=== PATIENT | female | born 1970 | race Caucasian/White ===

== ENCOUNTER 2022-01-07 20:11 | Emergency (ER) | payer MEDICAID ==
[~2022-01-07] VITALS: Ht 167.6 cm; Wt 137.6 kg
--- OUTSIDE RECORDS SUMMARY | 2022-01-07 20:14 | XMS ---
PreManage Notification: CARROLL MCGILL Security Safety Spec Events No recent Security Events currently on file [facility] There are no care providers on record at this time. Nathalia has no Care Guidelines for this patient. Joni VISIT COUNT (12 MO.) 1 RAEANN Felix TOTAL 1 NOTE: Visits indicate total known visits. ED/C VISIT TRACKING (12 MO.) 01/07/2022 20:13 RAEANN Varghese [place] TYPE: Emergency COMPLAINT: - POST OP PROBLEMS INPATIENT VISIT TRACKING (12 MO.) No inpatient visits to display in this time frame [id number]
[2022-01-07] MEDS ORDERED: PRAZOSIN HCL5 MG PO (20:59)
[2022-01-07] MEDS ORDERED: EFFEXOR XR150 MG PO (21:00)
[2022-01-07] MEDS ORDERED: OMEPRAZOLE20 MG PO (21:00)
[2022-01-07] MEDS ORDERED: LIPITOR20 MG PO (21:02)
[2022-01-07] MEDS ORDERED: PROAIR HFA8.5 GM INH (21:02)
[2022-01-07] MEDS ORDERED: OXYCODONE HCL5 MG PO (21:03)
== END 2022-01-07 21:12 | disposition home or self-care (01) ==
LOC: ED 20:11
DX: T85.698A Other mechanical complication of other specified internal prosthetic devices, implants and grafts, initial encounter (principal); Z88.0 Allergy status to penicillin; Z88.8 Allergy status to other drugs, medicaments and biological substances; Z79.899 Other long term (current) drug therapy
CPT/HCPCS: 99283

== ENCOUNTER 2022-02-08 22:22 | Emergency (ER) | payer MEDICAID ==
[~2022-02-08] VITALS: Ht 172.7 cm; Wt 136.0 kg
[~2022-02-08 22:22] MED LIST: EFFEXOR XR150 MG PO; LIPITOR20 MG PO; OMEPRAZOLE20 MG PO; OXYCODONE HCL5 MG PO; PRAZOSIN HCL5 MG PO; PROAIR HFA8.5 GM INH
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
[2022-02-09] MEDS ORDERED: PERCOCET 5-3251 EACH PO (01:57)
== END 2022-02-09 02:38 | disposition home or self-care (01) ==
LOC: ED 22:22
DX: S92.811A Other fracture of right foot, initial encounter for closed fracture (principal); M19.90 Unspecified osteoarthritis, unspecified site; J44.9 Chronic obstructive pulmonary disease, unspecified; Z88.0 Allergy status to penicillin; Z88.8 Allergy status to other drugs, medicaments and biological substances; Z79.899 Other long term (current) drug therapy; W01.0XXA Fall on same level from slipping, tripping and stumbling without subsequent striking against object, initial encounter
CPT/HCPCS: 36415; 73700; 80048; 85025; 96374; 99284-25; J2270

== ENCOUNTER 2022-10-23 12:22 | Emergency (ER) | payer OTHER ==
[~2022-10-23] VITALS: Ht 172.7 cm; Wt 127.5 kg
[~2022-10-23 12:22] MED LIST changes: +PERCOCET 5-3251 EACH PO
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
== END 2022-10-23 13:56 | disposition home or self-care (01) ==
LOC: ED 12:22
DX: S83.411A Sprain of medial collateral ligament of right knee, initial encounter (principal); W00.0XXA Fall on same level due to ice and snow, initial encounter; M19.90 Unspecified osteoarthritis, unspecified site; F43.10 Post-traumatic stress disorder, unspecified; J44.9 Chronic obstructive pulmonary disease, unspecified; Z88.8 Allergy status to other drugs, medicaments and biological substances; Z88.0 Allergy status to penicillin; Z79.899 Other long term (current) drug therapy
CPT/HCPCS: 99283

== ENCOUNTER 2022-12-30 12:09 | Emergency (ER) | payer OTHER ==
[~2022-12-30] VITALS: Ht 172.7 cm; Wt 131.5 kg
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
[2022-12-30] MEDS ORDERED: PREDNISONE20 MG PO ×2 (13:27→15:35)
[2022-12-30] MEDS ORDERED: AZITHROMYCIN250 MG PO (13:27)
[2022-12-30] MEDS ORDERED: GABAPENTIN300 MG PO (13:28)
[2022-12-30] MEDS ORDERED: HYDROXYZINE HCL50 MG PO (13:28)
[2022-12-30 15:52] VITALS: BP 104/83
--- NOTE | 2022-12-31 16:43 | EKG ---
[facility] [address] [facility] [place], [place] [address] Signed Normal sinus rhythm Normal ECG No previous ECGs available Confirmed by PACHECO ESPARZA MD ([id number]) on 12/31/2022 4:42:59 PM Electronically Signed By: PACHECO ESPARZA MD 12/31/223 PATIENT NAME: CARROLL MCGILL Electrocardiogram DATE OF : 72 PHYSICIAN: PACHECO ESPARZA MD REPORT #: [id number] REPORT IS CONFIDENTIAL AND NOT TO BE RELEASED WITHOUT AUTHORIZATION
== END 2022-12-30 15:52 | disposition home or self-care (01) ==
LOC: ED 12:09
DX: R07.89 Other chest pain (principal); J44.9 Chronic obstructive pulmonary disease, unspecified; Z88.0 Allergy status to penicillin; Z88.8 Allergy status to other drugs, medicaments and biological substances; Z79.899 Other long term (current) drug therapy; Z79.52 Long term (current) use of systemic steroids
CPT/HCPCS: 36415; 71045; 80053; 84484; 85025; 93005; 93010; 94640

== ENCOUNTER 2024-11-04 19:17 | Emergency (ER) | payer OTHER ==
[~2024-11-04] VITALS: Ht 172.7 cm; Wt 140.6 kg
[~2024-11-04 19:17] MED LIST changes: +AZITHROMYCIN250 MG PO; +GABAPENTIN300 MG PO; +HYDROXYZINE HCL50 MG PO; +PREDNISONE20 MG PO
[2024-11-04 19:38] LABS: BASOPHILS 0.4 % (0-2); EOSINOPHILS 7.1 % (0-6); HEMATOCRIT 42.2 % (35.0-50.0); HEMOGLOBIN 14.6 g/dL (12.0-18.0); LYMPHOCYTES 40.9 % (24-44); MCH 30.8 (27-36); MCHC 34.7 g/dl (30-36); MCV 88.7 fl (81-99); MONOCYTES 5.5 % (0-12); NEUTROPHILS 46.1 % (39-80); PLATELET COUNT 291 K/uL (140-440); RBC 4.76 M/ul (4.3-5.7); RDW 13.2 (10.5-15.0)
[2024-11-04 19:59] LABS: ALBUMIN 3.6 g/dL (3.4-5.0); ALBUMIN/GLOBULIN RATIO 0.92 (1.1-2.4); ANION GAP 9.8 (7-21); BILIRUBIN, TOTAL 0.2 mg/dL (0.2-1.0); BUN/CREATININE RATIO 19.4 (6.0-28.6); CALCIUM 9.3 mg/dL (8.5-10.1); CREATININE, SERUM 0.67 mg/dL (0.55-1.02); POTASSIUM 3.8 mmol/L (3.5-5.1); PROTEIN, TOTAL 7.5 g/dL (6.4-8.2)
[2024-11-04] MEDS ORDERED: TENECTEPLASE 50 MG/10 ML VIAL IV ONE (20:00)
[2024-11-04 20:02] LABS: PARTIAL THROMBOPLASTIN TIME 26.7 Sec (22.9-41.3)
[2024-11-04 20:04] LABS: INR 0.91 (0.80-1.30); PROTIME 12.1 Sec (11.2-14.2)
[2024-11-04] MEDS ORDERED: TRAZODONE HCL100 MG PO (20:22)
[2024-11-04] MEDS ORDERED: REXULTI1 MG PO (20:22)
[2024-11-04] MEDS ORDERED: VITAMIN D325 MCG PO (20:23)
[2024-11-04] MEDS ORDERED: CYMBALTA60 MG PO (20:24)
[2024-11-04] MEDS ORDERED: NAPROXEN500 MG PO (20:25)
[2024-11-04] MEDS ORDERED: LIPITOR80 MG GT (20:26)
[2024-11-04] MEDS ORDERED: CITALOPRAM HBR40 MG PO (20:26)
[2024-11-04] MEDS ORDERED: DRAMAMINE25 M1 PO (20:27)
[2024-11-04] MEDS ORDERED: OMEPRAZOLE20 MG PO (20:27)
[2024-11-04] MEDS ORDERED: CYCLOBENZAPRINE10 MG PO (20:28)
[2024-11-04] MEDS ORDERED: MELATONIN12 MG PO (20:28)
[2024-11-04] MEDS ORDERED: DULERA 200 MCG/13 GM INH (20:29)
[2024-11-04] MEDS ORDERED: ADULT ASPIRIN R81 MG PO (20:30)
[2024-11-04] MEDS ORDERED: FLUTICASONE-SAL12 GM (20:31)
[2024-11-04 20:47] LABS: BILIRUBIN, URINE NEGATIVE (negative); BLOOD/HGB, URINE MODERATE (Negative); KETONE, URINE NEGATIVE (Negative); LEUK ESTERASE, URINE TRACE (negative); NITRITE, URINE POSITIVE (negative)
[2024-11-04 20:52] LABS: BACTERIA, URINE 1+ /hpf (negative); CASTS, URINE NONE SEEN \\lpf; COLLECTION TYPE, URINE CLEAN CATCH; CRYSTALS, URINE NONE SEEN (0-1+); EPITHELIAL CELLS, URINE SQUAMOUS 1+ /lpf (0-1+); REFLEX CULTURE, URINE Yes (No); WHITE BLOOD CELLS, URINE 21-40 /HPF (0-5)
[2024-11-04 21:01] LABS: AMPHETAMINES, URINE NEGATIVE (NEGATIVE); BARBITURATES, URINE NEGATIVE (NEGATIVE); BENZODIAZEPINE, URINE NEGATIVE (NEGATIVE); BUPRENORPHINE, URINE NEGATIVE (NEGATIVE); CANNABINOID, URINE NEGATIVE (NEGATIVE); COCAINE, URINE NEGATIVE (NEGATIVE); ECSTASY, URINE NEGATIVE (NEGATIVE); FENTANYL, URINE NEGATIVE (NEGATIVE); METHADONE, URINE NEGATIVE (NEGATIVE); OPIATES, URINE NEGATIVE (NEGATIVE); OXYCODONE, URINE NEGATIVE (NEGATIVE); PHENCYCLIDINE, URINE NEGATIVE (NEGATIVE)
[2024-11-04] MEDS ORDERED: CEFTRIAXONE SODIUM 2 GM VIAL ONE (22:26)
[2024-11-04] MEDS ORDERED: CEFTRIAXONE SODIUM 2 GM in SODIUM CHLORIDE 0.9% 100 ML IV ONE (22:45)
[2024-11-04 23:19] VITALS: BP 129/81
--- NOTE | 2024-11-06 21:08 | EKG ---
[facility] [address] [facility] [place], [place] [address] Signed Normal sinus rhythm Normal ECG When compared with ECG of 30-DEC-2022 12:18, No significant change was found Confirmed by Arthur Damon MD ([id number]) on 11/06/2024 9:07:55 PM Electronically Signed By: ARTHUR DAMON MD 11/06/24 210 PATIENT NAME: CARROLL MCGILL Electrocardiogram DATE OF : 72 PHYSICIAN: ARTHUR DAMON MD REPORT #: [id number] REPORT IS CONFIDENTIAL AND NOT TO BE RELEASED WITHOUT AUTHORIZATION
== END 2024-11-04 22:43 | disposition short-term general hospital (02) ==
LOC: ED 19:17
PROVIDERS: Family Medicine
DX: I63.9 Cerebral infarction, unspecified (principal); G81.91 Hemiplegia, unspecified affecting right dominant side; R47.1 Dysarthria and anarthria; J44.9 Chronic obstructive pulmonary disease, unspecified; Z88.8 Allergy status to other drugs, medicaments and biological substances; Z88.0 Allergy status to penicillin; Z79.51 Long term (current) use of inhaled steroids; Z79.82 Long term (current) use of aspirin; Z79.899 Other long term (current) drug therapy
CPT/HCPCS: 36415; 70450; 70496; 70498; 71045; 80053; 80307; 81001; 84484; 85025; 85610; 85730; 87077; 87088; 87186; 93005; 93010; G0480; J0696; J3101; Q3014; Q9967

== ENCOUNTER 2024-11-29 19:21 | Emergency (ER) | payer OTHER ==
[~2024-11-29] VITALS: Ht 172.7 cm; Wt 138.9 kg
[~2024-11-29 19:21] MED LIST changes: +ADULT ASPIRIN R81 MG PO; +CITALOPRAM HBR40 MG PO; +CYCLOBENZAPRINE10 MG PO; +CYMBALTA60 MG PO; +DRAMAMINE25 M1 PO; +DULERA 200 MCG/13 GM INH; +FLUTICASONE-SAL12 GM; +LIPITOR80 MG GT; +MELATONIN12 MG PO; +NAPROXEN500 MG PO; +REXULTI1 MG PO; +TRAZODONE HCL100 MG PO; +VITAMIN D325 MCG PO
--- OUTSIDE RECORDS SUMMARY | 2024-11-29 19:24 | XMS ---
PreManage Notification: CARROLL MCGILL Security Type Rolling Machine Operator Events No recent Security Events currently on file CRITERIA MET - [facility] - 2 Visits in 30 Days CARE PROVIDERS [facility] 09/03[facility]2019-Current [facility] PHONE: [phone] MATT RENTERIA Nurse Practitioner 05/23/2018-Current PHONE: Unknown KAY PORTILLO Family [facility] Current PHONE: Unknown Muriel Rubalcava Physician Final Application Reviewer El CALDERÓN PHONE: [phone] ISAI ANAND Stippler/Artist Relationship Manager [facility] TEAM PHONE: Unknown [facility] Clinic[facility]Center: [facility] Vaxart [facility] Current WORKERS CLINIC [facility] ([facility] <UNAVAIL> PHONE: [phone] Nathalia has no Care Guidelines for this patient. Joni VISIT COUNT (12 MO.) 2 RAEANN Felix 2 [facility] TOTAL 4 NOTE: Visits indicate total known visits. ED/UCC VISIT TRACKING (12 MO.) 11/29/2024 19:22 RAEANN Varghese [place] TYPE: Emergency COMPLAINT: - BACK PAIN 11/04/2024 19:17 RAEANN Varghese [place] TYPE: Emergency COMPLAINT: - STROKE SYMPTOMS DIAGNOSES: - Allergy status to other drugs, medicaments and biological substances - Allergy status to penicillin - Cerebral infarction, unspecified - Chronic obstructive pulmonary disease, unspecified - Dysarthria and anarthria - Hemiplegia, unspecified affecting right dominant side - oil heaterman (current) use of aspirin - jail (current) use of inhaled steroids - Other technician terminal and repeater (current) drug therapy - Weakness 05/12/2024 17:34 [facility] [place] TYPE: Emergency DIAGNOSES: - Headache, unspecified - Other symptoms and signs involving the musculoskeletal system - STROKE 01/09/2024 11:56 [facility] [place] TYPE: Emergency DIAGNOSES: - Contusion of right foot, initial encounter - Contusion of scalp, initial encounter - DIZZY, LIGHTHEADED, COUGH INPATIENT VISIT TRACKING (12 MO.) 11/05/2024 00:43 [facility] TYPE: Critical Care DIAGNOSES: - Anxiety disorder, unspecified - Cerebral infarction, unspecified - Depression, unspecified - Dysarthria and anarthria - Hyperlipidemia, unspecified - Nicotine dependence, cigarettes, uncomplicated - Weakness 05/13/2024 04:25 [facility]DON[facility]O TYPE: Neurology COMPLAINT: - ischemic stroke DIAGNOSES: - Cerebral infarction, unspecified [id number]
[2024-11-29] MEDS ORDERED: KETOROLAC TROMETHAMINE 60 MG/2 ML VIAL IM ONE (20:00)
[2024-11-29] MEDS ORDERED: LO-DOSE ASPIRIN81 MG (21:30)
[2024-11-29] MEDS ORDERED: IPRAT-ALBUT 0.5-3 ML (21:31)
[2024-11-29] MEDS ORDERED: HYDROmorphone HCL 1 MG/ML SYR IV ONE (21:45)
[2024-11-29] MEDS ORDERED: OXYCODONE/APAP 10/325 TAB PO ONE (22:00)
[2024-11-29] MEDS ORDERED: OXYCODONE/ACETAMINOPHEN 1 TAB HOME.PACK PO ONE (22:45)
[2024-11-29] MEDS ORDERED: predniSONE 20 MG TAB PO ONE (22:45)
[2024-11-29] MEDS ORDERED: OXYCODONE HCL5 MG PO (22:48)
[2024-11-29] MEDS ORDERED: PREDNISONE20 MG PO (22:48)
[2024-11-29 23:20] VITALS: BP 119/61
== END 2024-11-29 23:25 | disposition home or self-care (01) ==
LOC: ED 19:21
DX: S39.012A Strain of muscle, fascia and tendon of lower back, initial encounter (principal); F43.10 Post-traumatic stress disorder, unspecified; J44.9 Chronic obstructive pulmonary disease, unspecified; Z88.0 Allergy status to penicillin; Z79.899 Other long term (current) drug therapy; Z79.1 Long term (current) use of non-steroidal anti-inflammatories (NSAID); Z79.82 Long term (current) use of aspirin; X58.XXXA Exposure to other specified factors, initial encounter
CPT/HCPCS: 72131; 96372; 99283-25; J1885; J7512

== ENCOUNTER 2024-12-08 16:15 | Emergency (ER) | payer OTHER ==
[~2024-12-08] VITALS: Ht 172.7 cm; Wt 140.0 kg
[~2024-12-08 16:15] MED LIST changes: +IPRAT-ALBUT 0.5-3 ML; +LO-DOSE ASPIRIN81 MG
--- OUTSIDE RECORDS SUMMARY | 2024-12-08 16:16 | XMS ---
PreManage Notification: CARROLL MCGILL Security Pot Annealer Events No recent Security Events currently on file CRITERIA MET - [facility] - 2 Visits in 30 Days [facility] PHONE: [phone] MATT RENTERIA Nurse Practitioner 05/23/2018-Current PHONE: Unknown KAY PORTILLO Family [facility] Current PHONE: Unknown Muriel Rubalcava Physician Library Director El CALDERÓN PHONE: [phone] ISAI ANAND Die Cutter Diamond/Plater Barrel [facility] TEAM PHONE: Unknown [facility] Clinic/Center: [facility] [employer] [facility] Current WORKERS CLINIC [facility] ([facility]) <UNAVAIL> PHONE: [phone] Natahlia has no Care Guidelines for this patient. Joni VISIT COUNT (12 MO.) 3 RAEANN Felix 2 [facility] TOTAL 5 NOTE: Visits indicate total known visits. ED/UCC VISIT TRACKING (12 MO.) 12/08/2024 16:16 RAEANN Varghese [place] TYPE: Emergency COMPLAINT: - BLOOD IN STOOL 11/29/2024 19:22 RAEANN Varghese [place] TYPE: Emergency COMPLAINT: - BACK PAIN DIAGNOSES: - Allergy status to penicillin - Chronic obstructive pulmonary disease, unspecified - Exposure to other specified factors, initial encounter - FDC (current) use of aspirin - FDC (current) use of non-steroidal anti-inflammatories (NSAID) - Low back pain, unspecified - Other rock worker (current) drug therapy - Post-traumatic stress disorder, unspecified - Strain of muscle, fascia and tendon of lower back, initial encounter 11/04/2024 19:17 RAEANN [place] TYPE: Emergency COMPLAINT: - STROKE SYMPTOMS DIAGNOSES: - Allergy status to other drugs, medicaments and biological substances - Allergy status to penicillin - Cerebral infarction, unspecified - Chronic obstructive pulmonary disease, unspecified - Dysarthria and anarthria - Hemiplegia, unspecified affecting right dominant side - gin feeder (current) use of aspirin - gin feeder (current) use of inhaled steroids - Other usp (current) drug therapy - Weakness 05/12/2024 17:34 [facility] [place] TYPE: Emergency DIAGNOSES: - Headache, unspecified - Other symptoms and signs involving the musculoskeletal system - STROKE 01/09/2024 11:56 [facility] [place] TYPE: Emergency DIAGNOSES: - Contusion of right foot, initial encounter - Contusion of scalp, initial encounter - DIZZY, LIGHTHEADED, COUGH INPATIENT VISIT TRACKING (12 MO.) 11/05/2024 00:43 [facility] TYPE: Critical Care DIAGNOSES: - Anxiety disorder, unspecified - Cerebral infarction, unspecified - Depression, unspecified - Dysarthria and anarthria - Hyperlipidemia, unspecified - Nicotine dependence, cigarettes, uncomplicated - Weakness 05/13/2024 04:25 [facility] Alberto [facility] TYPE: Neurology COMPLAINT: - ischemic stroke DIAGNOSES: - Cerebral infarction, unspecified [id number]
[2024-12-08] MEDS ORDERED: SODIUM CHLORIDE 0.9% 500 ML IV PRN (16:45)
[2024-12-08 16:51] LABS: BASOPHILS 0.5 % (0-2); HEMOGLOBIN 14.5 g/dL (12.0-18.0); LYMPHOCYTES 34.6 % (24-44); MCH 30.5 (27-36); MCHC 35.3 g/dl (30-36); MCV 86.5 fl (81-99); NEUTROPHILS 51.9 % (39-80); PLATELET COUNT 289 K/uL (140-440); RBC 4.75 M/ul (4.3-5.7); RDW 13.3 (10.5-15.0)
[2024-12-08] MEDS ORDERED: LISINOPRIL5 MG PO (16:51)
[2024-12-08 17:03] LABS: PARTIAL THROMBOPLASTIN TIME 21.6 Sec (22.9-41.3)
[2024-12-08 17:04] LABS: INR 0.94 (0.80-1.30)
[2024-12-08 17:11] LABS: ALBUMIN 3.4 g/dL (3.4-5.0); ALBUMIN/GLOBULIN RATIO 0.87 (1.1-2.4); ANION GAP 10.7 (7-21); BILIRUBIN, TOTAL 0.3 mg/dL (0.2-1.0); CALCIUM 9.2 mg/dL (8.5-10.1); CREATININE, SERUM 0.65 mg/dL (0.55-1.02); POTASSIUM 3.7 mmol/L (3.5-5.1); PROTEIN, TOTAL 7.3 g/dL (6.4-8.2)
[2024-12-08 17:25] LABS: ABO A; ANTIBODY SCREEN NEGATIVE; RH POSITIVE
[2024-12-08 19:05] VITALS: BP 133/86
== END 2024-12-08 19:05 | disposition home or self-care (01) ==
LOC: ED 16:15
PROVIDERS: Emergency Medicine
DX: K92.2 Gastrointestinal hemorrhage, unspecified (principal); J44.9 Chronic obstructive pulmonary disease, unspecified; F43.10 Post-traumatic stress disorder, unspecified; Z88.0 Allergy status to penicillin; Z88.8 Allergy status to other drugs, medicaments and biological substances; Z79.51 Long term (current) use of inhaled steroids; Z79.82 Long term (current) use of aspirin
CPT/HCPCS: 36415; 80053; 85025; 85610; 85730; 86850; 86900; 86901; 99284

== ENCOUNTER 2024-12-25 21:00 | Emergency (ER) | payer OTHER ==
[~2024-12-25] VITALS: Ht 172.7 cm; Wt 136.4 kg
[~2024-12-25 21:00] MED LIST changes: +LISINOPRIL5 MG PO
--- OUTSIDE RECORDS SUMMARY | 2024-12-25 21:01 | XMS ---
PreManage Notification: CARROLL MCGILL Security Door Builder Events No recent Security Events currently on file CRITERIA MET - [facility] - 2 Visits in 30 Days [facility] PHONE: [phone] MATT RENTERIA Nurse Practitioner 05/23/2018-Current PHONE: Unknown KAY PORTILLO Family [facility] Current PHONE: Unknown Muriel Rubalcava Physician Cut Off Sawyer Log El CALDERÓN PHONE: [phone] ISAI ANAND Jewelry Enameler/Belt [facility] TEAM PHONE: Unknown [facility] Clinic[facility]Center: [facility] Current WORKERS CLINIC [facility] ([facility]) <UNAVAIL> PHONE: [phone] Nathalia has no Care Guidelines for this patient. Joni VISIT COUNT (12 MO.) 4 RAEANN Felix 2 [facility] TOTAL 6 NOTE: Visits indicate total known visits. ED/UCC VISIT TRACKING (12 MO.) 12/25/2024 21:01 RAEANN [place]arg[place]se [place] TYPE: Emergency COMPLAINT: - ALTERED LOC 12/08/2024 16:16 RAEANN Varg[place]se [place] TYPE: Emergency COMPLAINT: - BLOOD IN STOOL DIAGNOSES: - Allergy status to other drugs, medicaments and biological substances - Allergy status to penicillin - Chronic obstructive pulmonary disease, unspecified - Gastrointestinal hemorrhage, unspecified - Hemorrhage of anus and rectum - regional intermodal truck driver (current) use of aspirin - long-term (current) use of inhaled steroids - Post-traumatic stress disorder, unspecified 11/29/2024 19:22 RAEANN [place]arg[place]se [place] TYPE: Emergency COMPLAINT: - BACK PAIN DIAGNOSES: - Allergy status to penicillin - Chronic obstructive pulmonary disease, unspecified - Exposure to other specified factors, initial encounter - regional intermodal truck driver (current) use of aspirin - long-term (current) use of non-steroidal anti-inflammatories (NSAID) - Low back pain, unspecified - Other extermination inspector (current) drug therapy - Post-traumatic stress disorder, unspecified - Strain of muscle, fascia and tendon of lower back, initial encounter 11/04/2024 19:17 RAEANN [place]arg[place]se [place] TYPE: Emergency COMPLAINT: - STROKE SYMPTOMS DIAGNOSES: - Allergy status to other drugs, medicaments and biological substances - Allergy status to penicillin - Cerebral infarction, unspecified - Chronic obstructive pulmonary disease, unspecified - Dysarthria and anarthria - Hemiplegia, unspecified affecting right dominant side - long-term (current) use of aspirin - long-term (current) use of inhaled steroids - Other group home (current) drug therapy - Weakness 05/12/2024 17:34 [facility] [place] TYPE: Emergency DIAGNOSES: - Headache, unspecified - Other symptoms and signs involving the musculoskeletal system - STROKE 01/09/2024 11:56 [facility] TYPE: Emergency DIAGNOSES: - Contusion of right foot, initial encounter - Contusion of scalp, initial encounter - DIZZY, LIGHTHEADED, COUGH INPATIENT VISIT TRACKING (12 MO.) 11/05/2024 00:43 [facility] TYPE: Critical Care DIAGNOSES: - Anxiety disorder, unspecified - Cerebral infarction, unspecified - Depression, unspecified - Dysarthria and anarthria - Hyperlipidemia, unspecified - Nicotine dependence, cigarettes, uncomplicated - Weakness 05/13/2024 04:25 [facility] Alberto [facility] TYPE: Neurology COMPLAINT: - ischemic stroke DIAGNOSES: - Cerebral infarction, unspecified [id number]
[2024-12-25] MEDS ORDERED: IBLOOD GLUCOSE TEST STRIP 1 EA TEST XX ONE (21:15)
[2024-12-25 21:32] LABS: HEMATOCRIT 37.9 % (35.0-50.0); HEMOGLOBIN 13.4 g/dL (12.0-18.0); MCH 30.1 (27-36); MCHC 35.4 g/dl (30-36); PLATELET COUNT 275 K/uL (140-440); RBC 4.45 M/ul (4.3-5.7); RDW 13.1 (10.5-15.0)
[2024-12-25 21:43] LABS: INR 1.05 (0.80-1.30); PARTIAL THROMBOPLASTIN TIME 26.7 Sec (22.9-41.3); PROTIME 13.1 Sec (11.2-14.2)
[2024-12-25 21:44] LABS: BASOPHILS, MANUAL DIFF 1; EOSINOPHILS, MANUAL DIFF 5; LYMPHOCYTES, MANUAL DIFF 50; MONOCYTES, MANUAL DIFF 4; NEUTROPHILS, MANUAL DIFF 40
[2024-12-25 21:54] LABS: ALBUMIN 3.1 g/dL (3.4-5.0); ALBUMIN/GLOBULIN RATIO 0.84 (1.1-2.4); ANION GAP 10.4 (7-21); BILIRUBIN, TOTAL 0.3 mg/dL (0.2-1.0); BUN/CREATININE RATIO 18.91 (6.0-28.6); CALCIUM 8.6 mg/dL (8.5-10.1); CREATININE, SERUM 0.74 mg/dL (0.55-1.02); POTASSIUM 3.4 mmol/L (3.5-5.1); PROTEIN, TOTAL 6.8 g/dL (6.4-8.2)
[2024-12-25 23:23] VITALS: BP 114/62
== END 2024-12-25 23:10 | disposition home or self-care (01) ==
LOC: ED 21:00
PROVIDERS: Family Medicine
DX: R53.1 Weakness (principal); F43.10 Post-traumatic stress disorder, unspecified; J44.9 Chronic obstructive pulmonary disease, unspecified; Z79.52 Long term (current) use of systemic steroids; Z79.82 Long term (current) use of aspirin; Z79.899 Other long term (current) drug therapy; Z88.0 Allergy status to penicillin; Z88.8 Allergy status to other drugs, medicaments and biological substances
CPT/HCPCS: 36415; 70450; 70496; 70498; 80053; 80307; 84484; 85025; 85610; 85730; 99285-25; Q9967

== ENCOUNTER 2025-02-17 17:28 | Emergency (ER) | payer OTHER ==
[~2025-02-17] VITALS: Ht 172.7 cm; Wt 143.0 kg
--- NOTE | ~2025-02-17 | EKG ---
[facility] [address] [place], [place] [address] Draft EK completed, results pending confirmation PATIENT NAME: CARROLL MCGILL Electrocardiogram DATE OF : 72 PHYSICIAN: PRELIMINARY REPORT #: [id number] REPORT IS CONFIDENTIAL AND NOT TO BE RELEASED WITHOUT AUTHORIZATION
[~2025-02-17 17:28] MED LIST changes: +LEVETIRACETAM250 MG PO
--- OUTSIDE RECORDS SUMMARY | 2025-02-17 17:29 | XMS ---
PreManage Notification: CARROLL MCGILL Security [employer] Events No recent Security Events currently on file CRITERIA MET - 6 ED Visits in 6 Months - [facility] - 2 Visits in 30 Days [facility] FAMILY PHONE: [phone] MATT RENTERIA Nurse Practitioner 05/23/2018-Current PHONE: Unknown KAY PORTILLO [facility] Current PHONE: Unknown Muriel Rubalcava Physician Maritime Engineer El CALDERÓN PHONE: [phone] ISAI ANAND Director Of Career Resources/Furrier Apprentice [facility] TEAM PHONE: Unknown [employer] [facility] Clinic/Center: [employer] Current [facility] PHONE: [phone] Nathalia has no Care Guidelines for this patient. Joni VISIT COUNT (12 MO.) 6 RAEANN [facility] TOTAL 7 NOTE: Visits indicate total known visits. ED/UCC VISIT TRACKING (12 MO.) 02/17/2025 17:29 [facility] [place] TYPE: Emergency COMPLAINT: - SEIZURE 01/25/2025 18:17 [facility] [place] TYPE: Emergency COMPLAINT: - SEIZURE DIAGNOSES: - Allergy status to other drugs, medicaments and biological substances - Allergy status to penicillin - Chronic obstructive pulmonary disease, unspecified - oil heaterman (current) use of inhaled steroids - Other watermelon inspector (current) drug therapy - Post-traumatic stress disorder, unspecified - Unspecified convulsions 12/25/2024 21:01 [facility] [place] TYPE: Emergency COMPLAINT: - ALTERED LOC DIAGNOSES: - Allergy status to other drugs, medicaments and biological substances - Allergy status to penicillin - Chronic obstructive pulmonary disease, unspecified - half-way (current) use of aspirin - half-way (current) use of systemic steroids - Other watermelon inspector (current) drug therapy - Post-traumatic stress disorder, unspecified - Weakness 12/08/2024 16:16 [facility] [place] TYPE: Emergency COMPLAINT: - BLOOD IN STOOL DIAGNOSES: - Allergy status to other drugs, medicaments and biological substances - Allergy status to penicillin - Chronic obstructive pulmonary disease, unspecified - Gastrointestinal hemorrhage, unspecified - Hemorrhage of anus and rectum - half-way (current) use of aspirin - half-way (current) use of inhaled steroids - Post-traumatic stress disorder, unspecified 11/29/2024 19:22 [facility] [place] TYPE: Emergency COMPLAINT: - BACK PAIN DIAGNOSES: - Allergy status to penicillin - Chronic obstructive pulmonary disease, unspecified - Exposure to other specified factors, initial encounter - oil heaterman (current) use of aspirin - oil heaterman (current) use of non-steroidal anti-inflammatories (NSAID) - Low back pain, unspecified - Other halfway (current) drug therapy - Post-traumatic stress disorder, [...] oil heaterman (current) use of aspirin - half-way (current) use of inhaled steroids - Other watermelon inspector (current) drug therapy - Weakness 05/12/2024 17:34 [facility] [place] TYPE: Emergency DIAGNOSES: - Headache, unspecified - Other symptoms and signs involving the musculoskeletal system - STROKE INPATIENT VISIT TRACKING (12 MO.) 11/05/2024 00:43 [facility]I [facility] TYPE: Critical Care DIAGNOSES: - Anxiety disorder, unspecified - Cerebral infarction, unspecified - Depression, unspecified - Dysarthria and anarthria - Hyperlipidemia, unspecified - Nicotine dependence, cigarettes, uncomplicated - Weakness 05/13/2024 04:25 [facility] TYPE: Neurology COMPLAINT: - ischemic stroke DIAGNOSES: - Cerebral infarction, unspecified [email or web address]
[2025-02-17] MEDS ORDERED: REXULTI2 MG PO (17:40)
[2025-02-17] MEDS ORDERED: ATORVASTATIN CA80 MG PO (17:40)
[2025-02-17] MEDS ORDERED: ZOLPIDEM TARTRAT5 MG PO (17:40)
[2025-02-17] MEDS ORDERED: IBLOOD GLUCOSE TEST STRIP 1 EA TEST VI ONE (17:45)
[2025-02-17 18:02] LABS: BASOPHILS 0.4 % (0.1-1.2); EOSINOPHILS 4.5 % (0.7-5.8); HEMATOCRIT 39.7 % (34.1-44.9); HEMOGLOBIN 13.6 g/dL (11.2-15.7); LYMPHOCYTES 34.5 % (19.3-51.7); MCHC 34.3 g/dL (32.2-35.5); MCV 87.4 fL (79.4-94.8); MONOCYTES 6.4 % (4.7-12.5); NEUTROPHILS 53.9 % (34.0-71.1); PLATELET COUNT 263 K/uL (182-369); RBC 4.54 M/uL (3.93-5.22)
[2025-02-17 18:28] LABS: ALBUMIN 3.3 g/dL (3.4-5.0); ALBUMIN/GLOBULIN RATIO 0.87 (1.1-2.4); ALCOHOL, MEDICAL <3 ng/dL (<3); ALKALINE PHOSPHATASE 169 U/L (46-116); ALT (SGPT) 46 U/L (14-59); AST (SGOT) 20 U/L (15-37); BILIRUBIN, TOTAL 0.4 mg/dL (0.2-1.0); BUN/CREATININE RATIO 13.18 (6.0-28.6); CARBON DIOXIDE 30 mmol/L (21-32); CHLORIDE 104 mmol/L (98-107); CREATININE, SERUM 0.91 mg/dL (0.55-1.02); GLOMERULAR FILTRATION RATE,EST 75 mL/min (>60); PROTEIN, TOTAL 7.1 g/dL (6.4-8.2); UREA NITROGEN 12 mg/dL (7-18)
[2025-02-17] MEDS ORDERED: levETIRAcetam 500 MG TAB PO ONE (18:45)
[2025-02-17 18:59] LABS: BILIRUBIN, URINE NEGATIVE (negative); BLOOD/HGB, URINE TRACE-I (Negative); KETONE, URINE NEGATIVE (Negative); LEUK ESTERASE, URINE NEGATIVE (negative); NITRITE, URINE NEGATIVE (negative)
[2025-02-17 19:03] VITALS: BP 126/70
[2025-02-17 19:07] LABS: EPITHELIAL CELLS, URINE SQUAMOUS 4+ /lpf (0-1+); WHITE BLOOD CELLS, URINE 0-1 /HPF (0-5)
[2025-02-17 19:08] LABS: BACTERIA, URINE 1+ /hpf (negative); CASTS, URINE NONE SEEN \\lpf; COLLECTION TYPE, URINE CLEAN CATCH; CRYSTALS, URINE NONE SEEN (0-1+); REFLEX CULTURE, URINE No (No)
[2025-02-17 19:22] LABS: AMPHETAMINES, URINE NEGATIVE (NEGATIVE); BARBITURATES, URINE NEGATIVE (NEGATIVE); BENZODIAZEPINE, URINE NEGATIVE (NEGATIVE); BUPRENORPHINE, URINE NEGATIVE (NEGATIVE); CANNABINOID, URINE NEGATIVE (NEGATIVE); COCAINE, URINE NEGATIVE (NEGATIVE); ECSTASY, URINE NEGATIVE (NEGATIVE); FENTANYL, URINE NEGATIVE (NEGATIVE); METHADONE, URINE NEGATIVE (NEGATIVE); OPIATES, URINE NEGATIVE (NEGATIVE); OXYCODONE, URINE NEGATIVE (NEGATIVE); PHENCYCLIDINE, URINE NEGATIVE (NEGATIVE)
== END 2025-02-17 19:30 | disposition home or self-care (01) ==
LOC: ED 17:28
PROVIDERS: Emergency Medicine
DX: G40.909 Epilepsy, unspecified, not intractable, without status epilepticus (principal); J44.9 Chronic obstructive pulmonary disease, unspecified; M19.90 Unspecified osteoarthritis, unspecified site; F43.10 Post-traumatic stress disorder, unspecified; Z88.0 Allergy status to penicillin; Z88.8 Allergy status to other drugs, medicaments and biological substances; Z79.82 Long term (current) use of aspirin; Z79.899 Other long term (current) drug therapy; Z79.890 Hormone replacement therapy
CPT/HCPCS: 36415; 71045; 80053; 80177; 80307; 81001; 84484; 85025; 93005; 93010; 99284-25; G0480

== ENCOUNTER 2025-06-16 00:23 | Emergency (ER) | payer OTHER ==
[~2025-06-16] VITALS: Ht 172.7 cm; Wt 150.0 kg
[~2025-06-16 00:23] MED LIST changes: +ATORVASTATIN CA80 MG PO; +REXULTI2 MG PO; +ZOLPIDEM TARTRAT5 MG PO
--- OUTSIDE RECORDS SUMMARY | 2025-06-16 00:24 | XMS ---
PreManage Notification: CARROLL MCGILL Security Early Education Teacher Events No recent Security Events currently on file CRITERIA MET - 6 ED Visits in 6 Months [facility]Current [facility] PHONE: [phone] MATT RENTERIA Nurse Practitioner 05/23/2018-Current PHONE: Unknown -[facility]ist: Supervising Film Or Videotape Editor El Dupree PHONE: [phone] SANDRA SAUK [facility] CARE SYSTEM \F\ <UNAVAIL> PHONE: [phone] Leia BAINS Switchboard Clerk/Outsole Skiver Current PHONE: [phone] KAY PORTILLO [facility] Current PHONE: Unknown Muriel Rubalcava Physician Automobile Accessories Salesperson El CALDERÓN PHONE: [phone] ISAI ANAND Switchboard Clerk/Outsole Skiver [facility] TEAM PHONE: Unknown Nathalia has no Care Guidelines for this patient. E.D. VISIT COUNT (12 MO.) 7 RAEANN Dee [employer] TOTAL 10 NOTE: Visits indicate total known visits. ED/UCC VISIT TRACKING (12 MO.) 06/16/2025 00:24 [facility] [place] TYPE: Emergency COMPLAINT: - SHORTNESS OF BREATH 05/11/2025 12:28 [facility] [place] TYPE: Emergency DIAGNOSES: - Other symptoms and signs involving the nervous system - stroke symptoms 04/18/2025 06:32 [facility] [place] TYPE: Emergency DIAGNOSES: - Chronic obstructive pulmonary disease with (acute) exacerbation - SHORTNESS OF BREATH 04/02/2025 11:37 [facility] [place] TYPE: Emergency DIAGNOSES: - Unspecified convulsions - SEIZURES LETHARGIC 02/17/2025 17:29 [facility] [place] TYPE: Emergency COMPLAINT: - SEIZURE DIAGNOSES: - Allergy status to other drugs, medicaments and biological substances - Allergy status to penicillin - Chronic obstructive pulmonary disease, unspecified - Epilepsy, unspecified, not intractable, without status epilepticus - Hormone replacement therapy - longterm (current) use of aspirin - Other snf (current) drug therapy - Post-traumatic stress disorder, unspecified - Unspecified convulsions - Unspecified osteoarthritis, unspecified site 01/25/2025 18:17 [facility] [place] TYPE: Emergency COMPLAINT: - SEIZURE DIAGNOSES: - Allergy status to other drugs, medicaments and biological substances - Allergy status to penicillin - Chronic obstructive pulmonary disease, unspecified - buttermaker (current) use of inhaled steroids - Other terminal system operator (current) drug therapy - Post-traumatic stress disorder, unspecified - Unspecified convulsions 12/25/2024 21:01 [facility] [place] TYPE: Emergency COMPLAINT: - ALTERED LOC DIAGNOSES: - Allergy status to other drugs, medicaments and biological substances - Allergy status to penicillin - Chronic obstructive pulmonary disease, unspecified - longterm (current) use of aspirin - longterm (current) use of systemic steroids - Other terminal system operator (current) drug therapy - Post-traumatic stress disorder, unspecified - Weakness 12/08/2024 16:16 [facility] [place] TYPE: Emergency COMPLAINT: - BLOOD IN STOOL DIAGNOSES: - Allergy status to other drugs, medicaments and biological substances - Allergy status to penicillin - Chronic obstructive pulmonary disease, unspecified - Gastrointestinal hemorrhage, unspecified - Hemorrhage of anus and rectum - longterm (current) use of aspirin - buttermaker (current) use of inhaled steroids - Post-traumatic stress disorder, unspecified 11/29/2024 19:22 [facility] [place] TYPE: Emergency COMPLAINT: - BACK PAIN DIAGNOSES: - Allergy status to penicillin - Chronic obstructive pulmonary disease, unspecified - Exposure to other specified factors, initial encounter - longterm (current) use of aspirin - buttermaker (current) use of non-steroidal anti-inflammatories (NSAID) - Low back pain, unspecified - Other terminal system operator (current) drug therapy - Post-traumatic stress disorder, [...] Hemiplegia, unspecified affecting right dominant side - buttermaker (current) use of aspirin - buttermaker (current) use of inhaled steroids - Other terminal system operator (current) drug therapy - Weakness INPATIENT VISIT TRACKING (12 MO.) 11/05/2024 00:43 [facility] TYPE: Critical Care DIAGNOSES: - Anxiety disorder, unspecified - Cerebral infarction, unspecified - Depression, unspecified - Dysarthria and anarthria - Hyperlipidemia, unspecified - Nicotine dependence, cigarettes, uncomplicated - Weakness [email or web address]
[2025-06-16] MEDS ORDERED: ALBUTEROL SULFATE 0.5% 2.5 MG/0.5 ML VIAL INH ONE (00:30)
[2025-06-16 00:41] LABS: BASOPHILS 0.3 % (0.1-1.2); EOSINOPHILS 3.4 % (0.7-5.8); LYMPHOCYTES 46.1 % (19.3-51.7); MCH 30.5 PG (25.6-32.2); MCHC 35.0 g/dL (32.2-35.5); MCV 87.1 fL (79.4-94.8); MONOCYTES 6.7 % (4.7-12.5); NEUTROPHILS 43.3 % (34.0-71.1); RBC 4.49 M/uL (3.93-5.22)
[2025-06-16 01:06] LABS: ALT (SGPT) 21.0 U/L (14-59); AST (SGOT) 400.0 U/L (15-37); GLOMERULAR FILTRATION RATE,EST 95.0 mL/min (>60); PROTEIN, TOTAL 7.3 g/dL (6.4-8.2); UREA NITROGEN 8.0 mg/dL (7-18)
[2025-06-16 01:10] LABS: CORONAVIRUS COVID-19 AG NEGATIVE (NEGATIVE)
[2025-06-16] MEDS ORDERED: LEVETIRACETAM1000 MG PO (01:28)
[2025-06-16] MEDS ORDERED: DIVALPROEX SOD500 M1 PO (01:28)
[2025-06-16] MEDS ORDERED: GUAIFENESIN/CODEINE 60 ML HOME.PACK PO ONE (01:30)
[2025-06-16 02:58] VITALS: BP 141/89
[2025-06-17 14:20] LABS: HEPATITIS A ANTIBODY, IGM Negative (Negative); HEPATITIS C AB CIA INTERP Negative (Negative); HEPATITIS C ANTIBODY CIA INDEX <0.02 IV (())
== END 2025-06-16 03:01 | disposition home or self-care (01) ==
LOC: ED 00:23
PROVIDERS: Internal Medicine
DX: J06.9 Acute upper respiratory infection, unspecified (principal); R74.8 Abnormal levels of other serum enzymes; J44.9 Chronic obstructive pulmonary disease, unspecified; F17.200 Nicotine dependence, unspecified, uncomplicated; Z86.73 Personal history of transient ischemic attack (TIA), and cerebral infarction without residual deficits; Z88.0 Allergy status to penicillin; Z88.8 Allergy status to other drugs, medicaments and biological substances; Z79.82 Long term (current) use of aspirin; Z79.51 Long term (current) use of inhaled steroids; Z79.899 Other long term (current) drug therapy
CPT/HCPCS: 36415; 71045; 80053; 80074; 83880; 84484; 85025; 85379; 93005; 93010; 94644; 96374; 99285-25; J2919

== ENCOUNTER 2025-08-26 20:03 | Emergency (ER) | payer OTHER ==
[~2025-08-26] VITALS: Ht 172.7 cm; Wt 158.3 kg
[~2025-08-26 20:03] MED LIST changes: +DIVALPROEX SOD500 M1 PO; +LEVETIRACETAM1000 MG PO
[2025-08-26 20:18] LABS: BASOPHILS 0.3 % (0.1-1.2); EOSINOPHILS 2.7 % (0.7-5.8); LYMPHOCYTES 40.7 % (19.3-51.7); MCH 29.4 PG (25.6-32.2); MCHC 34.0 g/dL (32.2-35.5); MCV 86.7 fL (79.4-94.8); MONOCYTES 5.8 % (4.7-12.5); NEUTROPHILS 50.1 % (34.0-71.1); RBC 4.72 M/uL (3.93-5.22)
[2025-08-26 20:34] LABS: BLOOD/HGB, URINE TRACE-I (Negative); KETONE, URINE TRACE (Negative); LEUK ESTERASE, URINE NEGATIVE (negative); NITRITE, URINE NEGATIVE (negative)
[2025-08-26 20:38] LABS: ALCOHOL, MEDICAL <3 mg/dL (<3); ALT (SGPT) 36 U/L (14-59); AST (SGOT) 15 U/L (15-37); GLOMERULAR FILTRATION RATE,EST 104 mL/min (>60); PROTEIN, TOTAL 7.2 g/dL (6.4-8.2); UREA NITROGEN 10 mg/dL (7-18); VALPROIC ACID 38 ug/mL (50-100)
[2025-08-26 20:43] LABS: EPITHELIAL CELLS, URINE SQUAMOUS 2+ /lpf (0-1+)
[2025-08-26 20:45] LABS: BACTERIA, URINE 2+ /hpf (negative); CASTS, URINE NONE SEEN \\lpf; CRYSTALS, URINE NONE SEEN (0-1+); REFLEX CULTURE, URINE No (No)
[2025-08-26 20:49] LABS: AMPHETAMINES, URINE NEGATIVE (NEGATIVE); BARBITURATES, URINE NEGATIVE (NEGATIVE); BENZODIAZEPINE, URINE NEGATIVE (NEGATIVE); CANNABINOID, URINE NEGATIVE (NEGATIVE); COCAINE, URINE NEGATIVE (NEGATIVE); ECSTASY, URINE NEGATIVE (NEGATIVE); FENTANYL, URINE NEGATIVE (NEGATIVE); METHADONE, URINE NEGATIVE (NEGATIVE); OPIATES, URINE NEGATIVE (NEGATIVE); OXYCODONE, URINE NEGATIVE (NEGATIVE); PHENCYCLIDINE, URINE NEGATIVE (NEGATIVE)
[2025-08-26] MEDS ORDERED: DIVALPROEX SODIUM 500 MG TABLET.DR PO ONE (21:15)
[2025-08-26 21:44] VITALS: BP 142/71
[2025-08-28 10:03] LABS: KEPPRA (LEVETIRACETAM) 5.5 ug/mL (10.0-40.0)
--- NOTE | 2025-08-28 16:10 | EKG ---
[facility] [address] [place] [address] Signed Normal sinus rhythm Normal ECG When compared with ECG of 17-FEB-2025 17:33, No significant change was found Confirmed by Dani Perdomo DO ([id number]) on 08/28/2025 4:10:33 PM Electronically Signed By: DANI PERDOMO DO 08/28/25 1610 PATIENT NAME: CARROLL MCGILL Electrocardiogram DATE OF : 72 PHYSICIAN: DANI PERDOMO DO REPORT #: [id number] REPORT IS CONFIDENTIAL AND NOT TO BE RELEASED WITHOUT AUTHORIZATION
== END 2025-08-26 21:46 | disposition home or self-care (01) ==
LOC: ED 20:03
PROVIDERS: Internal Medicine
DX: G40.909 Epilepsy, unspecified, not intractable, without status epilepticus (principal); I69.398 Other sequelae of cerebral infarction; F43.10 Post-traumatic stress disorder, unspecified; J44.9 Chronic obstructive pulmonary disease, unspecified; Z79.51 Long term (current) use of inhaled steroids; Z79.82 Long term (current) use of aspirin; Z79.899 Other long term (current) drug therapy; Z88.0 Allergy status to penicillin; Z88.8 Allergy status to other drugs, medicaments and biological substances
CPT/HCPCS: 36415; 71045; 80053; 80164; 80177; 80307; 81001; 85025; 87088; 93005; 93010; 99284-25; G0480